=== PATIENT | male | born 1945 | race Hispanic/Latino ===

== ENCOUNTER 2019-06-23 14:46 | Outpatient (CLI) | payer MEDICARE, BC ==
--- NOTE | 2019-06-23 16:54 | RAD ---
PA AND LATERAL CHEST: Date: 06/23/19 HISTORY: Lung cancer. COMPARISON: 09/11/09 chest x-ray, which is the most recent available. CT abdomen/pelvis dated 10/07/18. FINDINGS: There has been development of a right-sided pleural effusion. Heart size within normal limits. Postop sternotomy changes are seen. Left lung is clear. IMPRESSION: Development of a moderate right-sided pleural effusion. POS: [facility]
== END 2019-06-23 14:47 | disposition home or self-care (01) ==
LOC: RAD 14:46
PROVIDERS: ATTEND Thoracic Surgery (Cardiothoracic Vascular Surgery)
DX: C34.31 Malignant neoplasm of lower lobe, right bronchus or lung (principal); J90 Pleural effusion, not elsewhere classified
CPT/HCPCS: 71046

== ENCOUNTER 2019-09-29 12:49 | Outpatient (CLI) | payer MEDICARE, BC ==
--- NOTE | 2019-09-29 13:09 | RAD ---
CHEST 2 VIEWS: COMPARISON: 06/23/2019. 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 FINDINGS: Stable sternotomy wires and surgical clips. Stable elevation of the right hemidiaphragm. Diminished r ight lung volume, presumed to be due to postsurgical change. No masses or consolidation. No pneumothorax or acute osseous abnormalities. IMPRESSION: No significant interval change. Transcribed Date/Time: 09/29/2019 1:24 PM
== END 2019-09-29 12:50 | disposition home or self-care (01) ==
LOC: RAD 12:49
PROVIDERS: ATTEND Thoracic Surgery (Cardiothoracic Vascular Surgery)
DX: C34.31 Malignant neoplasm of lower lobe, right bronchus or lung (principal)
CPT/HCPCS: 71046

== ENCOUNTER 2020-07-20 09:54 | Outpatient (CLI) | payer MEDICARE, BC ==
--- NOTE | 2020-07-20 12:18 | ULT ---
ABDOMINAL AORTIC ULTRASOUND: Date: 07/20/2020 HISTORY: Abdominal aortic aneurysm screening. FINDINGS: Real-time imaging of the abdominal aorta shows normal caliber aorta. Proximally, the aorta measures 1 .5, the mid portion 1.7, and distally 1.7. The iliac arteries measure in the 1.3 cm range, maximum me asurement. IMPRESSION: No evidence of aortic aneurysm. POS: [facility]
== END 2020-07-20 09:55 | disposition home or self-care (01) ==
LOC: BICULT 09:54
PROVIDERS: ATTEND Family Medicine Sports Medicine
DX: Z13.6 Encounter for screening for cardiovascular disorders (principal)
CPT/HCPCS: 76775

== ENCOUNTER 2020-12-12 14:58 | Outpatient (CLI) | payer MEDICARE, BC | END 2020-12-12 14:59 | disposition home or self-care (01) | LOC: BICRAD 14:58 | PROVIDERS: ATTEND Thoracic Surgery (Cardiothoracic Vascular Surgery) | DX: C34.31 Malignant neoplasm of lower lobe, right bronchus or lung (principal) | CPT/HCPCS: 71046 ==

== ENCOUNTER 2024-09-09 07:06 | Inpatient (IN) | payer BC, MEDICARE ==
[2024-09-09 07:43] LABS: #Basophils 0.03 10x3/uL (0.0-0.2); %Basophils 0.7 % (0.0-1.0); %Eosinophils 1.8 % (0.0-10.0); %Monocytes 7.9 % (0.0-10.0); %Neutrophils 73.4 % (42.0-75.0); Hematocrit 44.4 % (42.0-52.0); Hemoglobin 15.3 g/dL (14.0-18.0); Mean Corpuscular HGB CONC 34.5 g/dL (32.0-36.0); Mean Corpuscular Hemoglobin 29.7 pg (27.0-31.0); Mean Corpuscular Volume 86.2 fL (78.0-98.0); Mean Platelet Volume 9.6 fL (7.4-10.4); Platelet Count 215 10x3/uL (130-400); RBC Distribution Width 12.1 % (11.5-14.5); Red Blood Cell (RBC) Count 5.15 mill/uL (4.70-6.10)
[2024-09-09 07:56] LABS: ALT (SGPT) 20 U/L (8-55); AST (SGOT) 18 U/L (5-34); Albumin 4.1 g/dL (3.4-4.8); Alkaline Phosphatase 134 U/L (40-110); Anion Gap 15 mmol/L (10-20); BUN (Urea Nitrogen) 23 mg/dL (8.4-25.7); Bilirubin, Total 0.9 mg/dL (0.2-1.2); Calc. Creatinine Clearance 0 mL/min (70-130); Calcium 9.5 mg/dL (7.8-10.44); Carbon Dioxide 24 mmol/L (23-31); Chloride 101 mmol/L (98-107); Estimated GFR 55; Globulin 4.1 g/dL (2.4-3.5); Glucose 127 mg/dL (83-110); Protein, Total 8.2 g/dL (5.8-8.1); Sodium 136 mmol/L (136-145)
[2024-09-09 08:01] LABS: Troponin I 0.045 ng/mL (< 0.028)
[2024-09-09] MEDS ORDERED: Ketorolac Tromethamine 30 MG (1 mL) VIAL ONE (08:19)
[2024-09-09] MEDS ORDERED: Mag-Al 1200 mg/1200 mg/30 ML UDCUP ONE (08:19)
[2024-09-09] MEDS ORDERED: Lidocaine Viscous Sol 2% 15 ml UD Cup ONE (08:24)
[2024-09-09 13:41] LABS: Troponin I 0.167 ng/mL (< 0.028)
[2024-09-09] MEDS ORDERED: Aspirin Chewable 81 MG TAB ONE (15:13)
[2024-09-09] MEDS ORDERED: Nitroglycerin 0.4 MG TAB (25 Tab Bottle) SL PRN (16:10)
[2024-09-09] MEDS ORDERED: Ondansetron PF 4 MG/2 ML Vial IVP PRN (16:10)
[2024-09-09] MEDS ORDERED: Calcium Carbonate 500 MG ChewTAB PO PRN (16:10)
[2024-09-09] MEDS ORDERED: Ondansetron ODT 4 MG TAB PO PRN (16:10)
[2024-09-09] MEDS ORDERED: Acetaminophen 650 MG Suppository PR PRN (16:10)
[2024-09-09] MEDS ORDERED: Senokot S 8.6-50 MG TAB PO PRN (16:10)
[2024-09-09] MEDS ORDERED: Acetaminophen 325 MG TAB PO PRN (16:10)
[2024-09-09 16:26] LABS: Troponin I 0.302 ng/mL (< 0.028)
[2024-09-09 16:41] LABS: Magnesium 2.4 mg/dL (1.6-2.6)
[2024-09-09 18:16] VITALS: BMI 25.7
[2024-09-09 19:29] LABS: Troponin I 0.381 ng/mL (< 0.028)
[2024-09-09] MEDS: Pantoprazole 40 MG VIAL IVP SCH (20:31)
[2024-09-09 22:48] LABS: Troponin I 0.485 ng/mL (< 0.028)
[2024-09-10] MEDS: Enoxaparin 80 MG (0.8 mL) SYRINGE SC SCH ×2 (00:04→08:32)
[2024-09-10 05:24] LABS: #Basophils Less than 0.03 10x3/uL (0.0-0.2); %Basophils 0.5 % (0.0-1.0); %Eosinophils 2.5 % (0.0-10.0); %Lymphocytes 21.6 % (21.0-51.0); %Monocytes 8.9 % (0.0-10.0); %Neutrophils 66.3 % (42.0-75.0); Hematocrit 39.4 % (42.0-52.0); Hemoglobin 13.7 g/dL (14.0-18.0); Mean Corpuscular HGB CONC 34.8 g/dL (32.0-36.0); Mean Corpuscular Hemoglobin 29.8 pg (27.0-31.0); Mean Corpuscular Volume 85.7 fL (78.0-98.0); Mean Platelet Volume 10.3 fL (7.4-10.4); Platelet Count 175 10x3/uL (130-400); RBC Distribution Width 12.3 % (11.5-14.5)
[2024-09-10 05:55] LABS: ALT (SGPT) 17 U/L (8-55); AST (SGOT) 18 U/L (5-34); Albumin 3.5 g/dL (3.4-4.8); Alkaline Phosphatase 100 U/L (40-110); Anion Gap 14 mmol/L (10-20); BUN (Urea Nitrogen) 23 mg/dL (8.4-25.7); Calc. Creatinine Clearance 50 mL/min (70-130); Calcium 8.9 mg/dL (7.8-10.44); Carbon Dioxide 23 mmol/L (23-31); Chloride 106 mmol/L (98-107); Estimated GFR 57; Globulin 3.4 g/dL (2.4-3.5); Glucose 90 mg/dL (83-110); Potassium 3.6 mmol/L (3.5-5.1); Protein, Total 6.9 g/dL (5.8-8.1); Sodium 139 mmol/L (136-145)
[2024-09-10] MEDS: Aspirin Chewable 81 MG TAB PO SCH (08:32)
[2024-09-10] MEDS ORDERED: Enoxaparin 40 MG (0.4 mL) SYRINGE SC SCH (09:00)
[2024-09-10] MEDS ORDERED: Communication Order-Pharmacy FS SCH (10:00)
[2024-09-10] MEDS: Sodium Chloride 0.9% 1,000 ML IV SCH (10:54)
[2024-09-10] MEDS: Atorvastatin Calcium 10 MG TAB PO SCH (20:44)
[2024-09-11 04:00] LABS: #Basophils 0.03 10x3/uL (0.0-0.2); %Basophils 0.7 % (0.0-1.0); %Eosinophils 2.6 % (0.0-10.0); %Lymphocytes 20.4 % (21.0-51.0); %Monocytes 9.1 % (0.0-10.0); Hematocrit 36.4 % (42.0-52.0); Hemoglobin 12.5 g/dL (14.0-18.0); Mean Corpuscular HGB CONC 34.3 g/dL (32.0-36.0); Mean Corpuscular Hemoglobin 30.1 pg (27.0-31.0); Mean Corpuscular Volume 87.7 fL (78.0-98.0); Platelet Count 175 10x3/uL (130-400); RBC Distribution Width 12.1 % (11.5-14.5); Red Blood Cell (RBC) Count 4.15 mill/uL (4.70-6.10)
[2024-09-11 04:30] LABS: Anion Gap 12 mmol/L (10-20); BUN (Urea Nitrogen) 20 mg/dL (8.4-25.7); Calc. Creatinine Clearance 58 mL/min (70-130); Calcium 8.8 mg/dL (7.8-10.44); Carbon Dioxide 22 mmol/L (23-31); Chloride 111 mmol/L (98-107); Estimated GFR 68; Glucose 104 mg/dL (83-110); Sodium 141 mmol/L (136-145)
[2024-09-11 05:17] LABS: Troponin I 0.258 ng/mL (< 0.028)
[2024-09-11] MEDS: FLU (Fluad Triv) TS24-25 (65UP)/MF59C/PF 45 MCG/0.5 ML Syringe IM ONE (09:03)
[2024-09-11] MEDS ORDERED: Verapamil 5 MG/2 ML VIAL ONE (09:12)
[2024-09-11] MEDS ORDERED: fentaNYL 50 mcg/mL 1 mL Vial ONE (09:12)
[2024-09-11] MEDS ORDERED: Midazolam HCl 2 mg/2 ml Vial ONE (09:12)
[2024-09-11] MEDS ORDERED: Adenosine 6 mg (2 mL) VIAL ONE (09:12)
[2024-09-11] MEDS ORDERED: Heparin 10,000 UNITS/ 10 ML VIAL ONE ×2 (09:13→10:56)
[2024-09-11] MEDS ORDERED: Nitroglycerin 50 MG/250 ML BOT 250 ML ONE (09:13)
[2024-09-11] MEDS ORDERED: TICAGRELOR 90 MG TABLET ONE (11:06)
[2024-09-11] MEDS ORDERED: Tirofiban-0.9% Sodium Chloride 250 ML ONE (11:15)
[2024-09-11] MEDS: Sodium Chloride 0.9% 1,000 ML IV SCH (12:12)
[2024-09-11] MEDS ORDERED: Ondansetron PF 4 MG/2 ML Vial ONE (14:34)
[2024-09-11] MEDS ORDERED: Tirofiban-0.9% Sodium Chloride 250 ML IVPB SCH (16:45)
[2024-09-11 19:32] LABS: Troponin I 0.265 ng/mL (< 0.028)
[2024-09-11 23:15] LABS: Troponin I 0.511 ng/mL (< 0.028)
[2024-09-12 05:23] LABS: #Basophils 0.03 10x3/uL (0.0-0.2); %Basophils 0.5 % (0.0-1.0); %Eosinophils 0.5 % (0.0-10.0); %Lymphocytes 9.7 % (21.0-51.0); %Monocytes 8.3 % (0.0-10.0); %Neutrophils 80.8 % (42.0-75.0); Hemoglobin 12.3 g/dL (14.0-18.0); Mean Corpuscular HGB CONC 34.2 g/dL (32.0-36.0); Mean Corpuscular Hemoglobin 29.9 pg (27.0-31.0); Mean Corpuscular Volume 87.4 fL (78.0-98.0); Platelet Count 189 10x3/uL (130-400); RBC Distribution Width 12.1 % (11.5-14.5); Red Blood Cell (RBC) Count 4.12 mill/uL (4.70-6.10)
[2024-09-12 05:36] LABS: ALT (SGPT) 14 U/L (8-55); AST (SGOT) 16 U/L (5-34); Albumin 3.3 g/dL (3.4-4.8); Alkaline Phosphatase 86 U/L (40-110); Anion Gap 13 mmol/L (10-20); BUN (Urea Nitrogen) 13 mg/dL (8.4-25.7); Bilirubin, Total 1.1 mg/dL (0.2-1.2); Calc. Creatinine Clearance 67 mL/min (70-130); Calcium 8.4 mg/dL (7.8-10.44); Carbon Dioxide 20 mmol/L (23-31); Chloride 111 mmol/L (98-107); Estimated GFR 81; Glucose 98 mg/dL (83-110); Potassium 3.4 mmol/L (3.5-5.1); Protein, Total 6.3 g/dL (5.8-8.1); Sodium 141 mmol/L (136-145)
[2024-09-12 05:50] LABS: Troponin I 0.751 ng/mL (< 0.028)
[2024-09-12 08:05] VITALS: TEMP 98.4
[2024-09-12] MEDS: Potassium Chloride 20 MEQ TAB PO SCH (08:52)
[2024-09-12] MEDS: Pantoprazole DR 40 MG TAB PO SCH (08:52)
[2024-09-12] MEDS: TICAGRELOR 90 MG TABLET PO SCH (08:52)
[2024-09-12 12:31] LABS: Critical Call Chem Troponin I RESULT DECREASING; Troponin I 0.537 ng/mL (< 0.028)
[2024-09-12 13:34] VITALS: BP 132/77
== END 2024-09-12 13:45 | disposition home or self-care (01) | DRG 322 ==
LOC: ERS 07:06 → ERHOLD 15:21 → PCU 18:14 → OBSVTOIN 09-10 12:57 → CCU 09-11 11:33
PROVIDERS: ADMIT Internal Medicine; ATTEND Family Medicine
PROC: 027035Z Dilation of Coronary Artery, One Artery with Two Drug-eluting Intraluminal Devices, Percutaneous Approach (ICD-10-PCS; principal; 2024-09-11)
PROC: 4A023N7 Measurement of Cardiac Sampling and Pressure, Left Heart, Percutaneous Approach (ICD-10-PCS; 2024-09-11)
PROC: B2111ZZ Fluoroscopy of Multiple Coronary Arteries using Low Osmolar Contrast (ICD-10-PCS; 2024-09-11)
PROC: B2131ZZ Fluoroscopy of Multiple Coronary Artery Bypass Grafts using Low Osmolar Contrast (ICD-10-PCS; 2024-09-11)
PROC: B2181ZZ Fluoroscopy of Left Internal Mammary Bypass Graft using Low Osmolar Contrast (ICD-10-PCS; 2024-09-11)
DX: I21.4 Non-ST elevation (NSTEMI) myocardial infarction (principal); I25.110 Atherosclerotic heart disease of native coronary artery with unstable angina pectoris; K21.9 Gastro-esophageal reflux disease without esophagitis; E78.5 Hyperlipidemia, unspecified; N40.0 Benign prostatic hyperplasia without lower urinary tract symptoms; I12.9 Hypertensive chronic kidney disease with stage 1 through stage 4 chronic kidney disease, or unspecified chronic kidney disease; N18.30 Chronic kidney disease, stage 3 unspecified; Z95.1 Presence of aortocoronary bypass graft; Z95.5 Presence of coronary angioplasty implant and graft; Z88.0 Allergy status to penicillin; Z85.118 Personal history of other malignant neoplasm of bronchus and lung; Z79.899 Other long term (current) drug therapy
CPT/HCPCS: 36415; 71045; 80048; 80053; 83735; 84484; 85025; 85347; 92937; 92978; 93005; 93010; 93455; 93459; 93798; 96372; 99152; 99153; C1753; C1769; C1874; C1887; C1894; C9604; J0153; J1644; J1650; J1885; J2250; J2405; J2470; J3010; J3246; J7030